=== PATIENT | female | born 1945 | race Caucasian/White ===

== ENCOUNTER → 2017-05-26 | Outpatient (CLI) | payer MEDICARE, BC ==
[2017-05-26 13:33] LABS: ALT 33 U/L (9-52); AST 18 U/L (14-36); Alkaline Phosphatase 69 U/L (38-126); Anion Gap 11 mmol/L; Blood Urea Nitrogen 12 mg/dL (7-17); Calcium 9.8 mg/dL (8.4-10.2); Carbon Dioxide 24 mmol/L (22-30); Chloride 106 mmol/L (98-107); Glucose 99 mg/dL (74-99); Non-African American GFR(MDRD) >60 (>60 ml/min/1.73 sqM); Potassium 4.7 mmol/L (3.5-5.1); Sodium 141 mmol/L (137-145); Total Bilirubin 0.6 mg/dL (0.2-1.3); Total Protein 6.1 g/dL (6.3-8.2)
== END ==
LOC: LABPAT 12:48
PROVIDERS: ATTEND Orthopaedic Surgery Orthopaedic Surgery of the Spine
DX: Z01.812 Encounter for preprocedural laboratory examination (principal)
CPT/HCPCS: 80053; 86850; 86900; 86901

== ENCOUNTER 2017-06-01 06:36 | Day surgery (SDC) | payer MEDICARE, BC ==
[2017-05-24 12:40] VITALS: BMI 30.7
[~2017-06-01 06:36] MED LIST: BACITRACIN 50,000 UNIT, POLYMYXIN B 500,000 UNIT in SODIUM CHLORIDE 0.9% IRRIGATIO 1,00... IRRIGATION ONE; LIDOCAINE 1% 20 ML VIAL (10MG/ML) FOR IV START INTRADERMA PRN; ONDANSETRON 4 MG/2 ML VIAL IVP ONE; ceFAZolin 2 GM in SODIUM CHLORIDE 0.9% 100 ML IVPB ONE
[2017-06-01 07:40] LABS: Glucose,Whole Blood 137 mg/dL (75-99)
[2017-06-01] MEDS: LACTATED RINGERS 1,000 ML IV SCH (07:40)
[2017-06-01] MEDS ORDERED: fentaNYL (PF) 50 MCG/ML 2 ML AMP ONE (08:20)
[2017-06-01] MEDS ORDERED: LIDOCAINE 1% INJ 10MG/ML (20 ML MDV) ONE (08:20)
[2017-06-01] MEDS ORDERED: PROPOFOL 10 MG/ML 20 ML VIAL IV ONE (08:20)
[2017-06-01] MEDS ORDERED: MIDAZOLAM 2 MG/2 ML VIAL ONE (08:20)
[2017-06-01] MEDS ORDERED: VECURONIUM 10 MG VIAL IV ONE (08:20)
[2017-06-01] MEDS ORDERED: SUCCINYLCHOLINE CHLORIDE 100 MG/5 ML SYR IV ONE (08:20)
[2017-06-01] MEDS ORDERED: GELATIN SPONGE,ABSORB (LARGE) 1 EACH SPONGE TOPICAL ONE (09:01)
[2017-06-01] MEDS ORDERED: LIDOCAINE 0.5%-EPI 1:200,000 50 ML VIAL SQ ONE (09:01)
[2017-06-01] MEDS ORDERED: BUPIVACAINE (PF) 0.25% 30 ML VIAL SQ ONE (09:01)
[2017-06-01] MEDS ORDERED: methylPREDNISolone ACETATE 80 MG/ML 1 ML VIAL INJ ONE (09:01)
[2017-06-01] MEDS ORDERED: THROMBIN (BOVINE) 5,000 UNIT VIAL TOPICAL ONE (09:03)
[2017-06-01] MEDS ORDERED: LACTATED RINGERS 1,000 ML IV ONE (09:08)
--- NOTE | 2017-06-01 09:39 | XR ---
Fluoroscopy History: Lumbar laminectomy 1 image scanned. 6sec fluoro time.
[2017-06-01] MEDS ORDERED: ONDANSETRON 4 MG/2 ML VIAL IVP PRN (09:40)
[2017-06-01] MEDS ORDERED: MAGNESIUM HYDROXIDE 2,400 MG/10 ML CUP PO PRN (09:40)
[2017-06-01] MEDS ORDERED: HYDROmorphone 1 MG/ML 1 ML SYRINGE IVP PRN (09:40)
[2017-06-01] MEDS ORDERED: DIAZEPAM 5 MG TAB PO PRN (09:40)
[2017-06-01] MEDS ORDERED: HYDROcodone/APAP 5-325MG 1 EACH TAB PO PRN ×2 (09:40→09:43)
[2017-06-01] MEDS ORDERED: BENZOCAINE/MENTHOL LOZENG 1 EACH LOZENGE MUCOUS MEM PRN (09:40)
--- NOTE | 2017-06-01 09:40 | P.OP ---
Date of Procedure: 06/01/17 Preoperative Diagnosis: Herniated nucleus pulposis L4 5, right lower extremity radiculopathy Postoperative Diagnosis: Same Procedure(s) Performed: Implants: Anesthesia: GETA Pathology: none sent Condition: stable Disposition: PACU Indications for Procedure: Operative Findings: Description of Procedure: BRIEF OPERATIVE NOTE Preoperative Diagnosis: Herniated nucleus pulposis L4 5, right lower extremity radiculopathy, degenerative disc disease Postoperative Diagnosis: Same Procedure: Laminectomy and decompression L4 5 Discectomy for decompression L4 5 Surgeon: Dr. Echols Driver Utility Worker: Thai MADISON who is present throughout the entire the case persistence during positioning, dissection, exposure, visualization, and all crucial elements of the case as well as closure. Anesthesia: General anesthesia Estimated blood loss: Approximately 40 mL Complications: None apparent Components implanted: None Disposition: To recovery room in good stable condition. OPERATIVE INDICATIONS The patient has been having issues in their lower back and lower extremities. The patient was having severe pain in her back and right leg which correlated well with findings of a disc herniation and extruded fragment at L4 5 to the right. The patient has been through aggressive conservative treatment without any prolonged benefit. The patient has been through conservative treatment. We discussed various treatment options including surgery, and the patient wishes to proceed with surgery We discussed the risk, patient's alternatives and benefits of surgery including but not limited to, risk of bleeding risk of infection, risk of need for further surgery, risk of decreased, loss of motion, loss of function, nerve damage, paralysis, heart attack, blindness and . OPERATIVE SUMMARY After discussing all the risks, patient alternatives and benefits at length, the patient elected to proceed with surgical intervention, signed informed consent, and presented for their procedure. The patient was seen and examined in the preoperative holding area and the surgical site was marked. The patient was given antibiotics and brought to the operating room. The patient was sedated and intubated by anesthesia in standard fashion. The patient was positioned on to the operating room table in a prone position on the appropriate frame which was well-padded and well molded. We were careful to pad any bony prominences and pressure points. We were careful to maintain the patient's cervical spine and good neutral alignment and position throughout. The patient was prepped and draped in a normal standard fashion. An appropriate timeout and keystone protocol performed. We were able to proceed with the surgery. Fluoroscopy was utilized to establish the appropriate level at L4 5. The local wound area was infiltrated with local anesthetic. An incision was made at the midline longitudinally over the appropriate levels at L4 5. Dissection was taken down subcutaneously to the level of the fascia which was split midline. Dissection was taken over the lamina. Intraoperative fluoroscopy was taken which showed a marker at the appropriate level at L4 5. With the appropriate level positively confirmed, we were able to proceed with laminectomy. The wound was copiously irrigated and suctioned dry as had been done periodically throughout the case. I performed a laminectomy with a combination of curettes and a high-speed bur and Kerrison rongeurs. A small medial facetectomy was performed again further access. A partial foraminotomy was also performed. Portions of the ligamentum flavum were taken down to expose the dura and traversing nerve root. I was able to palpate and feel significant tension on the nerve root was able to palpate a extruded disc fragment which was mobilized and able to be removed given decompression at the traversing nerve root. I was able to mobilize the traversing nerve root and gain access to the disc space. Note was made of obvious compression from the disc as well. Protecting the soft tissue structures, a small annulotomy was established. I was able to perform discectomy and remove any extruded disc fragments and any loose fragments from within the disc itself. This gave excellent decompression at the traversing nerve root and the dura. There is some significant disc desiccation noted. I tried to preserve the disc annulus that appeared stable. There were no further extruded fragments noted. There is no evidence of dural tear or leak. Good hemostasis maintained. The wound was copiously irrigated and suctioned dry. Good decompression and discectomy was noted. We were able to proceed with closure. The fascia was closed for a watertight closure. The subcuticular tissue was closed with absorbable suture. The wound was cleaned and dried and dressed with the appropriate dressing. The drapes were broken down. The patient was gently rolled back onto their hospital bed being careful to maintain their cervical spine and good neutral alignment and position. They were woken up by anesthesia, extubated, and brought to the recovery room in good stable condition. The patient will be admitted to the hospital for observation and for appropriate postoperative care, medical management and monitoring. We will continue to follow them closely about the postoperative course.
[2017-06-01] MEDS ORDERED: ZOLPIDEM 10 MG TAB PO PRN (09:43)
[2017-06-01] MEDS: HYDROmorphone 1 MG/ML 1 ML SYRINGE IVP PRN ×4 (09:49→10:11)
[2017-06-01 10:12] LABS: Glucose,Whole Blood 174 mg/dL (75-99)
[2017-06-01] MEDS: HYDROmorphone 1 MG/ML 1 ML SYRINGE IVP ONE ×2 (10:20→10:35)
[2017-06-01] MEDS ORDERED: KETOROLAC 30 MG/ML 1 ML VIAL IVP ONE ×2 (10:35)
[2017-06-01] MEDS ORDERED: MEPERIDINE 50 MG/ML SYRINGE IVP ONE (10:56)
[2017-06-01] MEDS ORDERED: diphenhydrAMINE 50 MG/ML 1 ML VIAL IVP ONE (11:07)
[2017-06-01 12:13] LABS: Glucose,Whole Blood 136 mg/dL (75-99)
[2017-06-01 17:20] LABS: Glucose,Whole Blood 149 mg/dL (75-99)
[2017-06-01] MEDS: HYDROcodone/APAP 5-325MG 1 EACH TAB PO PRN (18:25)
[2017-06-01] MEDS: ceFAZolin 2 GM in SODIUM CHLORIDE 0.9% 100 ML IVPB SCH (20:05)
[2017-06-01] MEDS: metFORMIN 500 MG TAB PO SCH (20:09)
[2017-06-01] MEDS ORDERED: ATORVASTATIN 20 MG TAB PO SCH (21:00)
[2017-06-01 21:35] LABS: Glucose,Whole Blood 215 mg/dL (75-99)
[2017-06-02] MEDS: ceFAZolin 2 GM in SODIUM CHLORIDE 0.9% 100 ML IVPB SCH (01:57)
[2017-06-02 02:02] LABS: Glucose,Whole Blood 155 mg/dL (75-99)
[2017-06-02 02:03] VITALS: RESP 16
[2017-06-02] MEDS: HYDROcodone/APAP 5-325MG 1 EACH TAB PO PRN ×2 (02:06→12:56)
[2017-06-02 06:54] LABS: Glucose,Whole Blood 141 mg/dL (75-99)
[2017-06-02] MEDS ORDERED: INSULIN LISPRO (humaLOG) 300 UNIT/3 ML VIAL SQ SCH (07:30)
[2017-06-02] MEDS: SODIUM CHLORIDE 0.9% 1,000 ML IV SCH ×2 (07:58→08:05)
[2017-06-02 08:03] VITALS: BP 120/61; PULSE 96; TEMP 98.1
[2017-06-02] MEDS: LACTATED RINGERS 1,000 ML IV SCH (08:06)
[2017-06-02] MEDS: metFORMIN 500 MG TAB PO SCH (08:13)
[2017-06-02] MEDS ORDERED: ASPIRIN 81 MG CHEW PO SCH (09:00)
[2017-06-02] MEDS ORDERED: SENNOSIDES-DOCUSATE SODIUM 1 EACH TAB PO SCH (09:00)
[2017-06-02] MEDS ORDERED: LISINOPRIL 20 MG TAB PO SCH (09:00)
[2017-06-02] MEDS ORDERED: MAGNESIUM OXIDE 400 MG TAB PO SCH (09:00)
[2017-06-02] MEDS ORDERED: LEVOTHYROXINE 125 MCG TAB PO SCH (09:00)
--- NOTE | 2017-06-02 09:02 | P.DS ---
Providers Attending physician: Felice Echols Primary care physician: [facility] Course: The patient presented on the day of admission as per her operative note. She had a disc herniation at L4 5 with lower extremity radiculopathy and weakness. She underwent her surgery as per her operative note with decompression and discectomy and feels that she is having significant benefit in her leg already. She has having some soreness as expected from her surgical site. She is ambulatory in her room. She is tolerating her regular diet. She is voiding freely. Physical Exam The incision site is clean dry and intact. There is no erythema no drainage. There is no purulence no evidence of infection. Abdomen soft and nontender. Chest has good excursion with deep inspiration and expiration. The patient has active and passive range of motion intact at the upper and lower extremities. She says her leg is feeling significantly better and is not having pain. She is still having some weakness with dorsiflexion on the right which is unchanged from prior to her surgery. Hospital Course Postoperative day #1 status post laminectomy decompression with discectomy at L4 5 for disc herniation with stenosis and right lower extremity radiculopathy. The patient is making good improvement thus far and has had improvement in her pain and symptoms. She still has some weakness which we will have to see how it improves over the course of time as she heals. The patient has been making good progress postoperatively. They have completed the prophylactic antibiotics without any signs or symptoms of infection. The patient has been able to advance their diet, and is tolerating diet adequately. The pain was initially controlled with IV medications and is now controlled appropriately with oral medications. The patient has been able to increase their mobilization. The patient has progressed appropriately. I think they are in good stable condition for discharge today. They will be sent home with appropriate prescriptions. I answered their questions to the best of my ability in a language that they can understand and they are agreeable with the plan. They will follow up as directed in approximately 2 weeks or sooner if she is having any problems. Patient Condition at Discharge: Good Plan - Discharge Summary New Discharge Prescriptions: New HYDROcodone/APAP 5-325MG [Ida 5] 1 each PO Q4HR PRN #90 tab PRN Reason: Pain No Action Levothyroxine Sodium [Levoxyl] 125 mcg PO DAILY Aspirin [Adult Low Dose Aspirin EC] 81 mg PO DAILY HYDROcodone/APAP 5-325MG [Ida 5-325] 1 tab PO Q4HR PRN PRN Reason: Pain Zolpidem [Ambien] 10 mg PO HS PRN PRN Reason: sleeplessness Lisinopril [Zestril] 20 mg PO DAILY Atorvastatin [Lipitor] 20 mg PO HS metFORMIN HCL [metFORMIN HCL ER] 1,000 mg PO BID Magnesium 400 mg PO DAILY [facility] 1 tab PO DAILY Discharge Medication List Aspirin [Adult Low Dose Aspirin EC] 81 mg PO DAILY 05/24/17 [History] Atorvastatin [Lipitor] 20 mg PO HS 05/24/17 [History] [facility] 1 tab PO DAILY 05/24/17 [History] HYDROcodone/APAP 5-325MG [Ida 5-325] 1 tab PO Q4HR PRN 05/24/17 [History] Levothyroxine Sodium [Levoxyl] 125 mcg PO DAILY 05/24/17 [History] Lisinopril [Zestril] 20 mg PO DAILY 05/24/17 [History] Magnesium 400 mg PO DAILY 05/24/17 [History] Zolpidem [Ambien] 10 mg PO HS PRN 05/24/17 [History] metFORMIN HCL [metFORMIN HCL ER] 1,000 mg PO BID 05/24/17 [History] HYDROcodone/APAP 5-325MG [Ida 5] 1 each PO Q4HR PRN #90 tab 06/01/17 [Rx] Follow up Appointment(s)/Referral(s): Felice Echols DO [Doctor of Osteopathic Medicine] - 2 Weeks (Follow up with Kayden Hernandez at Dr. Echols's office in 2 weeks or sooner if she is having any problems) Patient Instructions/Handouts: Laminectomy (DC) Activity/Diet/Wound Care/Special Instructions: May ambulate to tolerance. Avoid heavy lifting. No repetitive bending twisting or stooping. Keep site clean. May shower with waterproof Tegaderm intact. Do not soak in a tub. On Tuesday May remove Tegaderm dressing and gauze, and then may shower with area uncovered. The Steri-Strips intact and allow them to fray off on their own. Discharge Disposition: HOME SELF-CARE
[2017-06-02 11:31] LABS: Glucose,Whole Blood 228 mg/dL (75-99)
== END 2017-06-02 13:33 | disposition home or self-care (01) ==
LOC: OR 06:36 → 3SUR 09:39 → 5ONC 09:39 → EDSTATUS 12:45 → OR 06-02 13:33
PROVIDERS: ATTEND Orthopaedic Surgery Orthopaedic Surgery of the Spine
DX: M51.16 Intervertebral disc disorders with radiculopathy, lumbar region (principal); M48.06 Spinal stenosis, lumbar region; R53.1 Weakness; E11.9 Type 2 diabetes mellitus without complications; E03.9 Hypothyroidism, unspecified; E66.9 Obesity, unspecified; Z68.31 Body mass index [BMI] 31.0-31.9, adult; R10.12 Left upper quadrant pain; I10 Essential (primary) hypertension; E78.00 Pure hypercholesterolemia, unspecified; K21.9 Gastro-esophageal reflux disease without esophagitis; Z87.442 Personal history of urinary calculi; Z79.84 Long term (current) use of oral hypoglycemic drugs; Z79.899 Other long term (current) drug therapy; Z87.891 Personal history of nicotine dependence
CPT/HCPCS: 97161; 72020; 63030; J1200; J1040; J2175; J0690 ×2; J2405; J1885; J1170; 86850; 86900; 86901